=== PATIENT | male | born 1945 | race Caucasian/White ===

== ENCOUNTER 2021-09-29 05:34 | Inpatient (IN) | payer MEDICARE, OTHER ==
[2021-09-23 15:15] LABS: BASOPHILS % (AUTO) 0.6 % (0-1); EOSINOPHILS # (AUTO) 0.3 X10'3 (0-0.9); EOSINOPHILS % (AUTO) 3.7 % (0-6); LYMPHOCYTES # (AUTO) 1.9 X10'3 (1.1-4.8); LYMPHOCYTES % (AUTO) 27.9 % (21-51); MEAN CORPUSCULAR HEMOGLOBIN 32.2 PG (27.0-31.0); MEAN CORPUSCULAR HGB CONC 33.6 g/dL (33.0-36.5); MEAN CORPUSCULAR VOLUME 95.6 FL (78-98); MEAN PLATELET VOLUME 7.4 FL (7.4-10.4); MONOCYTES # (AUTO) 0.6 X10'3 (0-0.9); MONOCYTES % (AUTO) 8.7 % (2-12); NEUTROPHILS # (AUTO) 4.1 X10'3 (1.8-7.7); NEUTROPHILS % (AUTO) 59.1 % (42-75); PRE OP HEMOGLOBIN 13.8 g/dL (14.0-17.9); PRE OP PLATELET COUNT 281 X10'3 (140-440); RED BLOOD COUNT 4.29 X10'6 (4.70-6.10)
[2021-09-23 15:26] LABS: PRE OP PROTIME 10.7 SECONDS (9.0-12.0)
[2021-09-23 15:32] LABS: ALBUMIN 3.7 G/DL (3.4-5.0); ALBUMIN/GLOBULIN RATIO 0.9 (1.1-1.5); ALKALINE PHOSPHATASE 72 IU/L (46-116); BLOOD UREA NITROGEN 14 MG/DL (7-18); BUN/CREATININE RATIO 15.7 (5.4-32.0); CALCIUM 8.6 MG/DL (8.5-10.1); CHLORIDE 108 MMOL/L (99-107); CREATININE 0.89 MG/DL (0.60-1.10); PRE OP ALT 21 U/L (30-65); PRE OP ANION GAP 6 (8-16); PRE OP AST 19 U/L (10-37); PRE OP BILIRUB, TOTAL 0.6 MG/DL (0.0-1.0); PRE OP GLUCOSE 89 MG/DL (70-104); PRE OP POTASSIUM 4.4 MMOL/L (3.4-5.1); PRE OP SODIUM 142 MMOL/L (135-145); TOTAL PROTEIN 7.6 G/DL (6.4-8.2); eGFR 83 ML/MIN
[2021-09-29] VITALS (18 sets, daily range): BP systolic 99–169; BP diastolic 46–103
[~2021-09-29] VITALS: Ht 188 cm; Wt 93.0 kg
[~2021-09-29 05:34] MED LIST: ALLO100T; COLC0.6T66; FLO0.4C; GLUCOSAMINE WITH MSM; MULT-1085 PO; OMEG1CAP2 PO; UBID100C16 PO; VITA1TAB97 PO; [UNRECOGNIZED DRUG - OTHER]; ceFAZolin 1000mg inj ONE; ceFAZolin inj. 3,000 MG in normal saline 100ml IV soln 100 ML IV ONE; cefazolin/dext.iso 2gm/50ml IV ONE; famotidine 20mg tablet PO ONE; vancomycin 1,500 MG in NS 300ml IV soln IV ONE
[2021-09-29] MEDS: ringers solution, lacted 1,000 ML IV SCH (06:06)
[2021-09-29] MEDS ORDERED: vancomycin 1,000mg inj ONE ×2 (06:31→06:43)
[2021-09-29] MEDS ORDERED: fentaNYL/PF 50MCG/1 ML 2ML syringe ONE (07:22)
[2021-09-29] MEDS ORDERED: MIDAZolam 1 MG/ML 5ML VIAL ONE ×2 (07:23→10:11)
--- NOTE | 2021-09-29 09:19 | NUR ---
PT. IS RESTING COMFORTABLY AFTER BEING RETURNED FROM THE OR. VSS, LILLIAM HUGGER CONNECTED. PT. REPOSITIONED FOR COMFORT. CALL LIGHT IN REACH.
[2021-09-29] MEDS ORDERED: ringers solution, lacted 1,000 ML IV SCH (11:55)
[2021-09-29] MEDS ORDERED: meperidine/PF 25mg/ml syringe IV PRN ×3 (11:55)
[2021-09-29] MEDS ORDERED: ondansetron/PF 4mg/2ml inj IV PRN (11:55)
[2021-09-29] MEDS ORDERED: morphine 2 MG/ML inj. syringe IV PRN (11:55)
[2021-09-29] MEDS ORDERED: morphine 4 MG/ML inj SYRINge IV PRN (11:55)
[2021-09-29] MEDS ORDERED: proCHLORperazine 10 MG/2 ml inj IV PRN (11:55)
[2021-09-29] MEDS ORDERED: tranexamic acid inj. 1,000 MG in 0.7% saline 100 ML PMX IV ONE (12:20)
[2021-09-29] MEDS ORDERED: propofol inj 20 ML IV ONE (12:20)
--- NOTE | 2021-09-29 12:33 | NUR ---
Received from OR via SURGICAL BED , accompanied by Anesthesiologist BETH and report given by Anesthesiolgist. 2 SEPERATE R [place]IP [place] DRESSING PRESENT NO DRAINAGE. POSITIVE DP R FOOT. IV 18 GAUGE LR @ 100. BAIRHPILAR BLANKETS X2 DONNED ALERT ORIENTED. DENIES PAIN ACUNA. YANICK'S DONETELVINA B. Addendum: 09/29/21 at 1304 by Syed Washington RN, RN Amended: Links added.
[2021-09-29] MEDS ORDERED: diphenhydrAMINE 25mg capsule PO PRN (12:40)
[2021-09-29] MEDS ORDERED: acetaminophen 325mg tablet PO PRN (12:40)
[2021-09-29] MEDS ORDERED: HYDROmorphone inj. 0.5 MG/0.5 ML DISP.SYRIN IV PRN (12:40)
[2021-09-29] MEDS ORDERED: magnesium hydroxide 30ml (MOM) UD suspension PO PRN (12:40)
[2021-09-29] MEDS ORDERED: HYDROcodone/acetaminophen 10/325mg tab PO PRN (12:40)
[2021-09-29] MEDS ORDERED: bisacodyl 10mg suppository rectal RC PRN (12:40)
--- NOTE | 2021-09-29 13:43 | NUR ---
PATIENT HAS MET ALL CRITERIA FOR TRANSFER TO THE SURGICAL FLOOR. VSS. DRESSINGS INTACT. BED LOW, CALL LIGHT PRESENT AND 2 RAILS UP. RN PRESENT TO ACCEPT CARE OF PATIENT AND REPORT HAS BEEN CALLED. ALL QUESTIONS ANSWERED TO ACCEPTING RN. WICHO STEIN AWARE PATIENT HAS ARRIVED. VSS. RASHAWN CHINCHILLA PRESENT TO ASSIST IN SET UP OF VS AND TO WELCOME PATIENT. ONE BAG OF LABELED BELONGINGS SENT WITH PATIENT TO [facility]. Addendum: 09/29/21 at 1402 by Syed Merida - WICHO RN Amended: Links added.
[2021-09-29] MEDS: HYDROmorphone 1 mg/ml syringe IV PRN ×2 (14:30→22:42)
[2021-09-29] MEDS: HYDROcodone/acetaminophen 10/325mg tab PO PRN ×2 (15:31→19:35)
[2021-09-29] MEDS: ceFAZolin/D5W- 1GM premix 50 ML IV SCH (16:24)
--- NOTE | 2021-09-29 19:10 | NUR ---
Patient in room [facility]. I have received report from WICHO Farmer and had the opportunity to ask questions and assume patient care.
[2021-09-29] MEDS: ondansetron/PF 4mg/2ml inj IV PRN (19:36)
[2021-09-29] MEDS: aspirin 81mg tab.chew PO SCH (19:36)
[2021-09-29] MEDS: sennosides 8.6mg tablet PO SCH (19:37)
[2021-09-29] MEDS ORDERED: VANCOMYCIN 1GM/200ML IVPB 200 ML IV SCH (20:00)
[2021-09-29] MEDS: potassium Cl 20mEq in NS 1,000 ML IV SCH (22:52)
[2021-09-30 00:24] VITALS: BP 103/52
[2021-09-30] MEDS: ceFAZolin/D5W- 1GM premix 50 ML IV SCH (00:32)
[2021-09-30] MEDS: ringers solution, lacted 1,000 ML IV SCH (00:55)
[2021-09-30] MEDS: potassium Cl 20mEq in NS 1,000 ML IV SCH ×2 (02:00→09:42)
[2021-09-30] MEDS: HYDROcodone/acetaminophen 10/325mg tab PO PRN (04:55)
[2021-09-30 06:18] LABS: BASOPHILS % (AUTO) 0.2 % (0-1); EOSINOPHILS % (AUTO) 0.1 % (0-6); HEMATOCRIT 33.8 % (42.0-52.0); HEMOGLOBIN 11.5 g/dl (14.0-17.9); LYMPHOCYTES # (AUTO) 1.1 X10'3 (1.1-4.8); LYMPHOCYTES % (AUTO) 11.2 % (21-51); MEAN CORPUSCULAR HEMOGLOBIN 32.4 PG (27.0-31.0); MEAN CORPUSCULAR HGB CONC 33.9 g/dL (33.0-36.5); MEAN CORPUSCULAR VOLUME 95.7 FL (78-98); MEAN PLATELET VOLUME 6.9 FL (7.4-10.4); MONOCYTES # (AUTO) 1.1 X10'3 (0-0.9); MONOCYTES % (AUTO) 11.7 % (2-12); NEUTROPHILS # (AUTO) 7.3 X10'3 (1.8-7.7); NEUTROPHILS % (AUTO) 76.8 % (42-75); PLATELET COUNT 250 X10'3 (140-440); RED BLOOD COUNT 3.53 X10'6 (4.70-6.10); RED CELL DISTRIBUTION WIDTH 12.8 % (11.5-14.5); WHITE BLOOD COUNT 9.5 X10'3 (4.5-11.0)
--- NOTE | 2021-09-30 06:23 | NUR ---
Problems reprioritized. Patient report given, questions answered & plan of care reviewed with WICHO Farmer. I also got report from WICHO Farmer 09/29 a long with my student Do > I agree with Do's documentation, assessments,
--- NOTE | 2021-09-30 06:24 | NUR ---
Problems reprioritized. Patient report given, questions answered & plan of care reviewed with WICHO Farmer.
--- NOTE | 2021-09-30 06:32 | NUR ---
I agree with Do's documentation, assessments, Report given to WICHO Farmer
[2021-09-30 06:39] LABS: ALANINE AMINOTRANSFERASE 18 U/L (12-78); ALBUMIN 2.9 G/DL (3.4-5.0); ALKALINE PHOSPHATASE 49 IU/L (46-116); ANION GAP 8 (8-16); ASPARTATE AMINO TRANSFERASE 20 U/L (10-37); BILIRUBIN,TOTAL 0.6 MG/DL (0.1-1.0); BLOOD UREA NITROGEN 18 MG/DL (7-18); BUN/CREATININE RATIO 20.2 (5.4-32.0); CALCIUM 7.8 MG/DL (8.5-10.1); CHLORIDE 104 MMOL/L (99-107); CREATININE 0.89 MG/DL (0.60-1.10); GLUCOSE 109 MG/DL (70-104); POTASSIUM 4.2 MMOL/L (3.5-5.1); SODIUM 139 MMOL/L (135-145); TOTAL CARBON DIOXIDE 27.4 MMOL/L (24-32); TOTAL PROTEIN 5.9 G/DL (6.4-8.2); eGFR 83 ML/MIN
[2021-09-30 08:00] VITALS: BP 142/64
[2021-09-30] MEDS: aspirin 81mg tab.chew PO SCH ×2 (09:39→20:15)
[2021-09-30] MEDS: allopurinol 100mg tablet PO SCH (09:40)
[2021-09-30] MEDS: colchicine 0.6mg tablet PO SCH (09:40)
[2021-09-30 11:00] VITALS: BP 132/70
[2021-09-30] MEDS ORDERED: ketorolac tromethamine 15mg/ml inj. IV ONE (12:15)
[2021-09-30] MEDS ORDERED: normal saline 1000ml 1,000 ML IV ONE (12:15)
[2021-09-30] MEDS ORDERED: oxyCODONE IR 5mg (immed. release) tablet PO PRN (12:20)
[2021-09-30] MEDS: oxyCODONE IR 5mg (immed. release) tablet PO PRN ×2 (13:53→21:25)
[2021-09-30] MEDS: ondansetron/PF 4mg/2ml inj IV PRN (14:28)
--- NOTE | 2021-09-30 15:33 | NUR ---
Joint Surgery Consult: Pt s/p R CHINMAY this admit per EMR. Pt sleeping did not wake to verbal cues during RD visit; written high protein ed w/ RD contact information left at bedside. Will remain available for further nutrition questions/concerns this admit. Addendum: 09/30/21 at [address] Amended: Links added.
[2021-09-30] MEDS ORDERED: OXYC-658 PO (16:13)
[2021-09-30] MEDS ORDERED: proMETHazine 25mg tablet PO PRN (16:20)
[2021-09-30] MEDS ORDERED: acetaminophen 325mg tablet PO PRN (16:20)
[2021-09-30] MEDS ORDERED: proMETHazine 25mg tablet PO ONE (16:20)
[2021-09-30] MEDS: HYDROmorphone 1 mg/ml syringe IV PRN ×2 (16:34→19:10)
[2021-09-30 18:00] VITALS: BP 139/70
--- NOTE | 2021-09-30 18:25 | NUR ---
Patient in room [facility]. I have received report from WICHO Lazar had the opportunity to ask questions and assume patient care.
[2021-09-30] MEDS: sennosides 8.6mg tablet PO SCH (20:15)
[2021-10-01] VITALS: BP 112/55
[2021-10-01] MEDS: oxyCODONE IR 5mg (immed. release) tablet PO PRN (04:37)
[2021-10-01 06:17] LABS: BASOPHILS % (AUTO) 0.1 % (0-1); EOSINOPHILS # (AUTO) 0.1 X10'3 (0-0.9); EOSINOPHILS % (AUTO) 0.8 % (0-6); HEMATOCRIT 31.7 % (42.0-52.0); HEMOGLOBIN 10.8 g/dl (14.0-17.9); LYMPHOCYTES % (AUTO) 10.3 % (21-51); MEAN CORPUSCULAR HEMOGLOBIN 32.3 PG (27.0-31.0); MEAN CORPUSCULAR HGB CONC 34.1 g/dL (33.0-36.5); MEAN CORPUSCULAR VOLUME 94.6 FL (78-98); MONOCYTES # (AUTO) 1.3 X10'3 (0-0.9); MONOCYTES % (AUTO) 13.5 % (2-12); NEUTROPHILS # (AUTO) 7.3 X10'3 (1.8-7.7); NEUTROPHILS % (AUTO) 75.3 % (42-75); PLATELET COUNT 218 X10'3 (140-440); RED BLOOD COUNT 3.35 X10'6 (4.70-6.10); RED CELL DISTRIBUTION WIDTH 12.8 % (11.5-14.5); WHITE BLOOD COUNT 9.7 X10'3 (4.5-11.0)
--- NOTE | 2021-10-01 06:31 | NUR ---
Problems reprioritized. Patient report given, questions answered & plan of care reviewed with WICHO Lazar.
[2021-10-01 06:35] LABS: ALANINE AMINOTRANSFERASE 15 U/L (12-78); ALBUMIN 2.7 G/DL (3.4-5.0); ALBUMIN/GLOBULIN RATIO 0.9 (1.1-1.5); ALKALINE PHOSPHATASE 46 IU/L (46-116); ANION GAP 9 (8-16); ASPARTATE AMINO TRANSFERASE 19 U/L (10-37); BILIRUBIN,TOTAL 0.5 MG/DL (0.1-1.0); BLOOD UREA NITROGEN 16 MG/DL (7-18); BUN/CREATININE RATIO 17.2 (5.4-32.0); CALCIUM 7.7 MG/DL (8.5-10.1); CHLORIDE 104 MMOL/L (99-107); CREATININE 0.93 MG/DL (0.60-1.10); GLUCOSE 107 MG/DL (70-104); POTASSIUM 4.2 MMOL/L (3.5-5.1); SODIUM 139 MMOL/L (135-145); TOTAL CARBON DIOXIDE 26.4 MMOL/L (24-32); TOTAL PROTEIN 5.7 G/DL (6.4-8.2); eGFR 79 ML/MIN
[2021-10-01] MEDS: allopurinol 100mg tablet PO SCH (07:47)
[2021-10-01] MEDS: colchicine 0.6mg tablet PO SCH (07:47)
[2021-10-01] MEDS: aspirin 81mg tab.chew PO SCH ×2 (07:47→20:53)
[2021-10-01] MEDS: HYDROmorphone 1 mg/ml syringe IV PRN ×2 (07:48→20:52)
--- NOTE | 2021-10-01 18:25 | NUR ---
Patient in room [facility]. I have received report from Marleny SANDS and had the opportunity to ask questions and assume patient care.
[2021-10-01 19:59] VITALS: BP 113/54
[2021-10-01] MEDS: sennosides 8.6mg tablet PO SCH (20:52)
[2021-10-02] MEDS: oxyCODONE IR 5mg (immed. release) tablet PO PRN ×2 (00:12→15:32)
[2021-10-02 00:28] VITALS: BP 134/58
[2021-10-02] MEDS: HYDROcodone/acetaminophen 10/325mg tab PO PRN ×2 (05:52→22:23)
[2021-10-02 06:30] LABS: BASOPHILS % (AUTO) 0.3 % (0-1); EOSINOPHILS # (AUTO) 0.1 X10'3 (0-0.9); EOSINOPHILS % (AUTO) 1.3 % (0-6); HEMATOCRIT 30.8 % (42.0-52.0); HEMOGLOBIN 10.5 g/dl (14.0-17.9); LYMPHOCYTES # (AUTO) 1.1 X10'3 (1.1-4.8); LYMPHOCYTES % (AUTO) 11.4 % (21-51); MEAN CORPUSCULAR HEMOGLOBIN 32.6 PG (27.0-31.0); MEAN CORPUSCULAR VOLUME 95.7 FL (78-98); MEAN PLATELET VOLUME 7.1 FL (7.4-10.4); MONOCYTES # (AUTO) 1.4 X10'3 (0-0.9); MONOCYTES % (AUTO) 14.5 % (2-12); NEUTROPHILS % (AUTO) 72.5 % (42-75); PLATELET COUNT 209 X10'3 (140-440); RED BLOOD COUNT 3.21 X10'6 (4.70-6.10); RED CELL DISTRIBUTION WIDTH 12.6 % (11.5-14.5); WHITE BLOOD COUNT 9.7 X10'3 (4.5-11.0)
--- NOTE | 2021-10-02 06:30 | NUR ---
Patient in room [facility]. I have received report from Jennifer SANDS and had the opportunity to ask questions and assume patient care.
--- NOTE | 2021-10-02 06:38 | NUR ---
Patient in room [facility]. I have received report from Jennifer SANDS and had the opportunity to ask questions and assume patient care.
[2021-10-02 06:39] LABS: ALANINE AMINOTRANSFERASE 15 U/L (12-78); ALBUMIN 2.5 G/DL (3.4-5.0); ALBUMIN/GLOBULIN RATIO 0.8 (1.1-1.5); ALKALINE PHOSPHATASE 46 IU/L (46-116); ANION GAP 9 (8-16); ASPARTATE AMINO TRANSFERASE 19 U/L (10-37); BILIRUBIN,TOTAL 0.7 MG/DL (0.1-1.0); BLOOD UREA NITROGEN 19 MG/DL (7-18); BUN/CREATININE RATIO 22.1 (5.4-32.0); CHLORIDE 104 MMOL/L (99-107); CREATININE 0.86 MG/DL (0.60-1.10); GLUCOSE 99 MG/DL (70-104); POTASSIUM 4.3 MMOL/L (3.5-5.1); SODIUM 141 MMOL/L (135-145); TOTAL CARBON DIOXIDE 27.7 MMOL/L (24-32); TOTAL PROTEIN 5.6 G/DL (6.4-8.2); eGFR 86 ML/MIN
--- NOTE | 2021-10-02 06:41 | NUR ---
Problems reprioritized. Patient report given, questions answered & plan of care reviewed with Dominik RN.
[2021-10-02 07:00] VITALS: BP 128/51
[2021-10-02] MEDS: colchicine 0.6mg tablet PO SCH (08:42)
[2021-10-02] MEDS: diphenhydrAMINE 25mg capsule PO PRN ×2 (08:42→15:34)
[2021-10-02] MEDS: allopurinol 100mg tablet PO SCH (08:42)
[2021-10-02] MEDS: aspirin 81mg tab.chew PO SCH ×2 (08:42→20:48)
[2021-10-02 12:00] VITALS: BP 127/60
--- NOTE | 2021-10-02 15:51 | NUR ---
Patient refusing discharge at this time due decreased mobility and increased pain. Attempted to notified [facility] of patient refusing discharge through paging system.
--- NOTE | 2021-10-02 18:18 | NUR ---
Problems reprioritized. Patient report given, questions answered & plan of care reviewed with Jeevan SANDS.
--- NOTE | 2021-10-02 18:21 | NUR ---
Student documentation: I have reviewed and agree with all interventions, assessments performed and documented by Matthew SANDS.
[2021-10-02 19:10] VITALS: BP 119/57
[2021-10-02] MEDS: sennosides 8.6mg tablet PO SCH (20:47)
[2021-10-03] VITALS: BP 116/55
[2021-10-03] MEDS: HYDROcodone/acetaminophen 10/325mg tab PO PRN (05:25)
--- NOTE | 2021-10-03 06:22 | NUR ---
Patient in room [facility]. I have received report from FERNNADO SANDS and had the opportunity to ask questions and assume patient care.
--- NOTE | 2021-10-03 06:25 | NUR ---
Problems reprioritized. Patient report given, questions answered & plan of care reviewed with NORMA. Addendum: 10/03/21 at 0625 by Matthew Castaneda RN Amended: Links added.
[2021-10-03 08:00] VITALS: BP 108/45
[2021-10-03] MEDS: aspirin 81mg tab.chew PO SCH ×2 (08:32→19:37)
[2021-10-03] MEDS: colchicine 0.6mg tablet PO SCH (08:32)
[2021-10-03] MEDS: allopurinol 100mg tablet PO SCH (08:32)
[2021-10-03] MEDS: diphenhydrAMINE 25mg capsule PO PRN (08:44)
[2021-10-03] MEDS: oxyCODONE IR 5mg (immed. release) tablet PO PRN (11:34)
[2021-10-03 11:44] VITALS: BP 109/50
--- NOTE | 2021-10-03 18:09 | NUR ---
Problems reprioritized. Patient report given, questions answered & plan of care reviewed with orlando conrad.
--- NOTE | 2021-10-03 18:15 | NUR ---
Student documentation: I have reviewed and agree with all interventions, assessments performed and documented by Matthew SANDS.
[2021-10-03] MEDS: sennosides 8.6mg tablet PO SCH (19:35)
[2021-10-03 20:00] VITALS: BP 129/60
[2021-10-04] VITALS: BP 132/63
--- NOTE | 2021-10-04 06:22 | NUR ---
Problems reprioritized. Patient report given, questions answered & plan of care reviewed with SARITA. Addendum: 10/04/21 at 0623 by Matthew Castaneda RN Amended: Links added.
[2021-10-04] MEDS: colchicine 0.6mg tablet PO SCH (07:30)
[2021-10-04] MEDS: allopurinol 100mg tablet PO SCH (07:30)
[2021-10-04] MEDS: oxyCODONE IR 5mg (immed. release) tablet PO PRN (07:30)
[2021-10-04] MEDS: aspirin 81mg tab.chew PO SCH (07:30)
[2021-10-04 07:56] VITALS: BP 121/90
== END 2021-10-04 08:55 | disposition home or self-care (01) | DRG 470 ==
LOC: PAS 05:34 → SUR 3N 12:43
PROVIDERS: ADMIT Orthopaedic Surgery; ATTEND Orthopaedic Surgery
PROC: 3E0T3BZ Introduction of Anesthetic Agent into Peripheral Nerves and Plexi, Percutaneous Approach (ICD-10-PCS; 2021-09-29)
PROC: 3E0T33Z Introduction of Anti-inflammatory into Peripheral Nerves and Plexi, Percutaneous Approach (ICD-10-PCS; 2021-09-29)
PROC: 0SR906Z Replacement of Right Hip Joint with Oxidized Zirconium on Polyethylene Synthetic Substitute, Open Approach (ICD-10-PCS; principal; 2021-09-29 09:42)
DX: M16.11 Unilateral primary osteoarthritis, right hip (principal); R11.0 Nausea; I95.1 Orthostatic hypotension
CPT/HCPCS: 36415; 72170; 80053; 82948; 85025; 85610; 85730; 86885; 86900; 86901; 86920; 87081; 97110; 97116; 97161; 97530; A4618; A6258; A6449; A7000; C1758; C1776; G0378; J0690; J1170; J1885; J2250; J2270; J2405; J2704; J3010; J3370; J3480; J3490; J7030; J7040; J7120; Q0163; Q0169; U0003; U0005